=== PATIENT | male | born 1985 | race African-American/Black ===

== ENCOUNTER 2017-05-24 10:44 | Emergency (ER) | payer OTHER ==
[~2017-05-24] VITALS: Ht 182.9 cm; Wt 74.8 kg
[2017-05-24 10:52] VITALS: BP 139/89
[2017-05-24] MEDS ORDERED: IBUPROFEN600 MG ORAL (11:42)
[2017-05-24] MEDS ORDERED: VENTOLIN HFA18 GM INH (11:42)
[2017-05-24] MEDS ORDERED: PSEUDOEPHEDRINE30 MG PO (11:42)
[2017-05-24 11:58] VITALS: BP 150/84
--- NOTE | 2017-05-26 14:41 | Emergency Room Report ---
History of Present Illness General Chief Complaint: Upper Respiratory Illness Source: Patient Present Illness HPI 31YOM walk-in With 2-3 days of sinus congestion, sinus pressure, dry cough and pleuritic chest pain after coughing Did not take any [id number] medications no Fever, chills, COPD or asthma Denies history of ACS, CHF No sick contacts No flu vaccine Allergies: Coded Allergies: No Known Allergies (Unverified , 05/24/17) Patient History Past Medical History: none Past Surgical History: none Pertinent Family History: none Social History: Denies: smoking, alcohol use, drug use Immunizations: UTD Reviewed Nursing Documentation: PMH: Agreed, PSxH: Agreed Nursing Documentation-PMH Past Medical History: No Stated History Review of Systems All Other Systems: negative except mentioned in HPI Physical Exam Vital Signs Date Time Temp Pulse Resp B/P (MAP) Pulse Ox O2 Delivery O2 Flow Rate FiO2 05/24/17 10:52 97.9 20 139/89 98 Room Air 05/24/17 10:52 79 Sp02 EP Interpretation: reviewed, normal General Appearance: normal inspection, well appearing, no apparent distress, alert, GCS 15, non-toxic Head: normocephalic, atraumatic Eyes: bilateral eye PERRL, bilateral eye EOMI ENT: normal ENT inspection, hearing grossly normal, normal pharynx, no angioedema, normal voice, TMs + canals normal, uvula midline, moist mucus membranes Neck: normal inspection, full range of motion, supple, thyroid normal, no meningismus, no bony tend Respiratory: normal inspection, lungs clear, normal breath sounds, no rhonchi, no respiratory distress, no retraction, no accessory muscle use, no wheezing, speaking full sentences Cardiovascular #1: regular rate, rhythm, no edema, no JVD, normal capillary refill Gastrointestinal: normal inspection, normal bowel sounds, non tender, soft, no mass, no peritonitis, non-distended, no guarding, no hernia, no pulsatile mass Genitourinary: no CVA tenderness Musculoskeletal: normal inspection, back normal, normal range of motion, no calf tenderness, pelvis stable, Lisa's Sign negative Neurologic: normal inspection, alert, oriented x3, responsive, proofer prepress III-XII nml as tested, motor strength/tone normal, cerebellar normal, normal gait, speech normal Psychiatric: normal inspection, judgement/insight normal, mood/affect normal, no suicidal/homicidal ideation, no delusions Skin: normal inspection, normal color, no rash Lymphatic: normal inspection, no adenopathy Medical Decision Making Diagnostic Impression: Primary Impression: Upper respiratory infection Qualified Codes: J06.9 - Acute upper respiratory infection, unspecified Additional Impression: Sinus congestion ER Course 31-year-old male with URI, sinus congestion vital signs stable, afebrile No signs of bacterial infection on exam Advise Sudafed, supportive treatment Close PMD followup ER course: Patient has remained stable during ED stay. Disposition: Patient is to be discharged to home. Prescriptions given are sudafed, motrin Patient is instructed to follow up with their primary care doctor within 5 days. Strict return precautions discussed with patient such as fever, chills, worsening/severe pain, nausea, vomiting, which may indicate severe illness. Patient verbalizes understanding and agrees with plan. Please note that this Emergency Department Report was dictated using [employer] robot operator technology software, occasionally this can lead to erroneous entry secondary to interpretation by the dictation equipment Last Vital Signs Date Time Temp Pulse Resp B/P (MAP) Pulse Ox O2 Delivery O2 Flow Rate FiO2 05/24/17 11:58 72 16 150/84 97 Room Air 05/24/17 10:52 97.9 Status: improved Disposition: HOME, SELF-CARE Condition: Improved Scripts Albuterol Sulfate (VENTOLIN HFA) 18 Gm Hfa.aer.ad 1 PUFF INH EVERY 6 HOURS, #18 GM 0 Refills Prov: SANJEEV BLANCO M.D. 05/24/17 Pseudoephedrine Hcl* (SUDAFED*) 30 Mg Tablet 30 MG PO Q12HR for 7 Days, #20 TAB Prov: SANJEEV BLANCO M.D. 05/24/17 Ibuprofen* (MOTRIN*) 600 Mg Tablet 600 MG ORAL THREE TIMES A DAY for headache for 7 Days, #30 TAB 0 Refills Prov: SANJEEV BLANCO M.D. 05/24/17 Referrals: NON PHYSICIAN (PCP) Patient Instructions: Upper Respiratory Infection, Adult Additional Instructions: - Take sudafed up to 2x a day for sinus congestion - Use ventolin inhaler for cough as needed - Take motrin up to 3x a day for headache, body aches SANJEEV BLANCO M.D. May 26, 2017 14:41
== END 2017-05-24 12:00 | disposition home or self-care (01) ==
LOC: EMR 11:47
DX: J06.9 Acute upper respiratory infection, unspecified (principal); J34.89 Other specified disorders of nose and nasal sinuses
CPT/HCPCS: 99284